=== PATIENT | male | born 1980 | race Caucasian/White ===

== ENCOUNTER 2017-08-06 10:27 | Emergency (ER) | payer MEDICAID ==
[2017-08-06 10:41] VITALS: O2SAT 98
--- NOTE | 2017-08-06 11:03 | EDPHY ---
H & P Stated Complaint: hematuria, r flank pain since last night Source: Patient Exam Limitations: No limitations - Personal History Current Tetanus/Diphtheria Vaccine: No Current Tetanus Diphtheria and Acellular Pertussis (TDAP): No - Medical/Surgical History Hx Asthma: No Hx Chronic Respiratory Disease: No Hx Diabetes: Yes Hx Cardiac Disease: No Hx Renal Disease: No Hx Cirrhosis: No Hx Alcoholism: No Hx HIV/AIDS: No Hx Splenectomy or Spleen Trauma: No Other PMH: NIDDM. kid stones - Social History Smoking Status: Never smoked Time Seen by Provider: 08/06/17 11:02 HPI/ROS: HPI: This is a 36-year-old male presents with Chief Complaint: hematuria, r flank pain since last night Location: Right flank Quality: Pain Duration: Since last night Signs and Symptoms: No nausea, no vomiting, no injury, no diarrhea, no hematemesis, no blood in stool, + hematuria, no testicular back/groin pain, no penile discharge Timing: Sudden Severity: Moderate Context: Patient has a history of type 2 diabetes mellitus managed with oral agents by Endocrinology as well as anxiety who presents with sudden onset of right flank severe nonradiating pain that started last night 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 He has continued intermittently off and on throughout the evening. He finished his shift around 0800 this morning. He went to use the bathroom around 0 900 and noticed blood in his urine. This is the 1st time this happened so he came to the ER for further evaluation. No prior history of kidney stones/abdominal surgery. Eating and drinking well. Patient denies any recent heavy lifting/injury/trauma. Modifying Factors: None Comment: ROS: see HPI Constitutional: No fever, no chills, no weight loss Eyes: No blurred vision Respiratory: No shortness of breath, no cough Cardiovascular: No chest pain Gastrointestinal: No nausea, no vomiting, no diarrhea Genitourinary: No dysuria Extremities: No myalgias Neurologic: No weakness, no numbness Skin: No rashes Hematologic: No bruising, no bleeding MEDICAL/SURGICAL/SOCIAL HISTORY: Medical history: Generally healthy. Does not take any regular medications. Surgical history: Denies Social history: Employed. CONSTITUTIONAL: Overweight white pleasant well-appearing adult white male, awake and alert, no obvious distress HEENT: Atraumatic and normocephalic, PERRL, EOMI. Tympanic membranes clear. Oropharynx clear, no exudate and moist pink mucosa. Airway patent. No lymphadenopathy. No meningismus. Cardiovascular: Normal S1/S2, regular rate, regular rhythm, without murmur rub or gallop. PULMONARY/CHEST: Symmetrical and nontender. Clear to auscultation bilaterally. Good air movement. No accessory muscle usage. ABDOMEN: Soft, nondistended, nontender, no rebound, no guarding, no peritoneal signs, no masses or organomegaly. No CVAT. EXTREMITIES: 2/2 pulses, no deformities, no clubbing, no cyanosis or edema. NEUROLOGICAL: no focal neuro deficits. GCS 15. SKIN: Warm and dry, no erythema. no rash. Good capillary refill. (Lucy De Souza) Constitutional: Initial Vital Signs Temperature (C) 36.7 C 08/06/17 10:38 Heart Rate 76 08/06/17 10:38 Respiratory Rate 16 08/06/17 10:38 Blood Pressure 160/80 H 08/06/17 10:38 O2 Sat (%) 98 08/06/17 10:38 O2 Delivery Mode Room Air Allergies/Adverse Reactions: No Known Allergies Allergy (Unverified 08/06/17 10:36) Home Medications: Medication Instructions Recorded Glimepiride 08/06/17 HYDROmorphone HCL [Dilaudid 2 mg 2 mg PO Q6 PRN #12 tab 08/06/17 (*)] Jardiance 08/06/17 Metformin 1000 mg 08/06/17 Ondansetron Odt [Zofran Odt 4 mg 4 mg PO Q4 PRN #12 tab 08/06/17 (*)] Prazosin HCl 08/06/17 Tamsulosin HCl [Flomax 0.4 MG (*)] 0.4 mg PO DAILY #10 cap 08/06/17 busPIRone 08/06/17 Medical Decision Making - Diagnostics Imaging Results: Imaging Impressions Abdomen/Pelvis CT 08/06/17 11:10 Impression: 1. Moderate right hydroureteronephrosis secondary to an 11 x 5 mm obstructing calculus in the mid to distal right ureter. 2. Nonobstructing left nephrolithiasis. Attention: This CT examination is specifically designed to evaluate patients who are clinically suspected of having acute obstructive uropathy. This examination does not use radiographic contrast, and as such, provides only a limited evaluation of the abdomen, pelvis and retroperitoneum. If there is further clinical suspicion for pathological conditions other than obstructive uropathy, a complete CT evaluation of the abdomen and pelvis utilizing intravenous, oral, and rectal contrast should be considered. Findings and recommendations discussed with Emergency Department physician, Lucy De Souza PA-C at 1216 hour, 08/06/2017. Final report concurs with initial preliminary interpretation. ED Course/Re-evaluation: I did not see this patient while he was in the emergency department. However his care was discussed with the PA while the patient was in the department. I agree with treatment plan and management (Celestino Dial) Labs, urinalysis, IV fluids, IV medications, CT abdomen and pelvis scan without contrast ordered Given 1 L normal saline, IV Toradol with pain down to 12/29 1215: Called by radiologist who advised that patient has a 11 mm x 5 mm right ureteral stone with moderate hydronephrosis. 1220: ED decision to consult, urology, Dr. Maikel Hutchinson, who advised he would like to follow with the patient outpatient as no signs of sepsis or renal failure. He asked that we give him Flomax and Dilaudid for pain control. He will see him in the office in the next 1-2 days. He is to call today for a follow-up appointment time and date. Passed p.o. trial prior to discharge. Drove self home. (Lucy De Souza) Differential Diagnosis: Abdominal pain including but not limited to nephrolithiasis, ureterolithiasis, appendicitis, cholecystitis, gastritis and urinary tract infection. (Lucy De Souza) - Data Points Laboratory Results: Laboratory Results 08/06/17 10:50 08/06/17 10:50 08/06/17 08/06/17 08/06/17 10:50 10:50 10:50 WBC 11.35 10^3/uL H 10^3/uL (3.80-9.50) RBC 5.90 10^6/uL 10^6/uL (4.40-6.38) Hgb 16.5 g/dL g/dL (13.7-17.5) Hct 45.5 % % (40.0-51.0) MCV 77.1 fL L fL (81.5-99.8) MCH 28.0 pg pg (27.9-34.1) MCHC 36.3 g/dL g/dL (32.4-36.7) RDW 12.5 % % (11.5-15.2) Plt Count 341 10^3/uL 10^3/uL (150-400) MPV 9.4 fL fL (8.7-11.7) Neut % (Auto) 58.2 % % (39.3-74.2) Lymph % (Auto) 32.8 % % (15.0-45.0) Crane % (Auto) 5.7 % % (4.5-13.0) Eos % (Auto) 2.0 % % (0.6-7.6) Baso % (Auto) 0.8 % % (0.3-1.7) Nucleat RBC Rel Count 0.0 % % (0.0-0.2) Absolute Neuts (auto) 6.60 10^3/uL H 10^3/uL (1.70-6.50) Absolute Lymphs (auto) 3.72 10^3/uL H 10^3/uL (1.00-3.00) Absolute Monos (auto) 0.65 10^3/uL 10^3/uL (0.30-0.80) Absolute Eos (auto) 0.23 10^3/uL 10^3/uL (0.03-0.40) Absolute Basos (auto) 0.09 10^3/uL 10^3/uL (0.02-0.10) Absolute Nucleated RBC 0.00 10^3/uL 10^3/uL (0-0.01) Immature Gran % 0.5 % % (0.0-1.1) Immature Gran # 0.06 10^3/uL 10^3/uL (0.00-0.10) Sodium 136 mEq/L mEq/L (134-144) Potassium 4.2 mEq/L mEq/L (3.5-5.2) Chloride 99 mEq/L mEq/L (97-110) Carbon Dioxide 22 mEq/l mEq/l (22-31) Anion Gap 15 mEq/L mEq/L (8-16) BUN 17 mg/dL mg/dL (7-23) Creatinine 1.2 mg/dL mg/dL (0.7-1.3) Estimated GFR > 60 Glucose 197 mg/dL H mg/dL (70-100) Calcium 9.7 mg/dL mg/dL (8.5-10.4) Urine Color RED Urine Appearance HAZY Urine pH 6.0 (5.0-7.5) Ur Specific Winter 1.021 (1.002-1.030) Urine Protein 1+ H (NEGATIVE) Urine Ketones NEGATIVE (NEGATIVE) Urine Blood 3+ H (NEGATIVE) Urine Nitrate NEGATIVE (NEGATIVE) Urine Bilirubin NEGATIVE (NEGATIVE) Urine Urobilinogen NEGATIVE EU EU (0.2-1.0) Ur Leukocyte Esterase NEGATIVE (NEGATIVE) Urine RBC 50-182 /hpf H /hpf (0-3) Urine WBC 3-5 /hpf H /hpf (0-3) Ur Epithelial Cells NONE SEEN /lpf /lpf (NONE-1+) Urine Glucose 3+ H (NEGATIVE) Medications Given: Discontinued Medications Sodium Chloride (Ns) 1,000 mls @ 0 mls/hr IV ONCE ONE; Wide Open PRN Reason: Protocol Stop: 08/06/17 11:11 Last Admin: 08/06/17 11:20 Dose: 1,000 mls Ketorolac Tromethamine (Toradol) 30 mg IVP EDNOW ONE Stop: 08/06/17 11:11 Last Admin: 08/06/17 11:20 Dose: 30 mg Departure - Departure Disposition: Home, Routine, Self-Care Clinical Impression: Ureterolithiasis, Renal colic on right side Condition: Good Instructions: Renal Colic (ED), Ureteral Stones (ED) Additional Instructions: Please drink plenty of fluids and continue to ambulate and move around. Please strain all urine and if you find a stone take to Urology. Call Urology this afternoon to make a follow-up appointment in the next 1-[address] Maikel Hutchinson. Referrals: Maikel Hutchinson MD [Medical Doctor] - As per Instructions Prescriptions: HYDROmorphone HCL [Dilaudid 2 mg (*)] 2 mg PO Q6 PRN #12 tab PRN Reason: Pain, Severe Ondansetron Odt [Zofran Odt 4 mg (*)] 4 mg PO Q4 PRN #12 tab PRN Reason: Nausea/Vomiting, Use 1st Tamsulosin HCl [Flomax 0.4 MG (*)] 0.4 mg PO DAILY #10 cap
[2017-08-06] MEDS ORDERED: NS 1,000 ML IV ONE (11:10)
[2017-08-06] MEDS ORDERED: KETOROLAC 30 MG/1 ML SDV IVP ONE (11:10)
[2017-08-06 11:15] LABS: % IMMATURE GRANULYOCYTES 0.5 % (0.0-1.1); ABSOLUTE IMMATURE GRANULOCYTES 0.06 10^3/uL (0.00-0.10); ADD DIFF? NO; ADD MORPH? NO; ADD SCAN? NO; ATYPICAL LYMPHOCYTE FLAG 0 (0-99); FRAGMENT RBC FLAG 0 (0-99); HEMATOCRIT 45.5 % (40.0-51.0); HEMOGLOBIN 16.5 g/dL (13.7-17.5); LEFT SHIFT FLG 0 (0-99); LIPEMIA HEMOLYSIS FLAG 90 (0-99); MEAN CELL HEMOGLOBIN CONCENTR. 36.3 g/dL (32.4-36.7); MEAN CELL VOLUME 77.1 fL (81.5-99.8); MEAN PLATELET VOLUME 9.4 fL (8.7-11.7); PLATELET CLUMPS FLAG 0 (0-99); PLATELET COUNT 341 10^3/uL (150-400); RED CELL DISTRIBUTION WIDTH 12.5 % (11.5-15.2)
[2017-08-06 11:21] LABS: COLOR RED; LEUKOCYTE ESTERASE,URINE NEGATIVE (NEGATIVE); NITRITE,URINE NEGATIVE (NEGATIVE)
[2017-08-06 11:24] LABS: ANION GAP 15 mEq/L (8-16); CALCIUM 9.7 mg/dL (8.5-10.4); CARBON DIOXIDE 22 mEq/l (22-31); CHLORIDE 99 mEq/L (97-110); CREATININE 1.2 mg/dL (0.7-1.3); GLOMERULAR FILTRATION RATE > 60; GLUCOSE 197 mg/dL (70-100); POTASSIUM 4.2 mEq/L (3.5-5.2); SODIUM 136 mEq/L (134-144)
[2017-08-06 11:26] LABS: RBC,URINE 50-182 /hpf (0-3)
[2017-08-06] MEDS ORDERED: TAMSULOSIN HCL 0.4 MG CAP PO ONE (13:15)
[2017-08-06 14:10] VITALS: BP 152/100; PULSE 78; RESP 18; TEMP 98.6
== END 2017-08-06 14:07 | disposition home or self-care (01) ==
DX: N20.1 Calculus of ureter (principal); E11.9 Type 2 diabetes mellitus without complications; E86.9 Volume depletion, unspecified; Z79.84 Long term (current) use of oral hypoglycemic drugs
CPT/HCPCS: 96374; J1885